=== PATIENT | female | born 1995 | race Two or more races ===

== ENCOUNTER 2023-09-25 21:06 | Emergency (ER) | payer MEDICAID, OTHER ==
[~2023-09-25] VITALS: Ht 154.9 cm; Wt 101.3 kg
[2023-09-25 21:26] VITALS: BP 154/86; RESP 16; TEMP 98.8; O2SAT 97
[2023-09-25 21:28] VITALS: PULSE 77
[2023-09-25] MEDS: BENZOCAINE (DENTAL) 20 % SPRAY 60ML MT ONE (23:00)
[2023-09-25] MEDS ORDERED: IBUP-1455 PO (23:05)
== END 2023-09-25 23:26 | disposition home or self-care (01) ==
LOC: ER 21:06
DX: S02.5XXA Fracture of tooth (traumatic), initial encounter for closed fracture (principal); Z79.899 Other long term (current) drug therapy; X58.XXXA Exposure to other specified factors, initial encounter; Y93.89 Activity, other specified; Y92.89 Other specified places as the place of occurrence of the external cause; Y99.8 Other external cause status
CPT/HCPCS: 93005

== ENCOUNTER 2024-06-30 22:04 | Emergency (ER) | payer MEDICAID ==
[~2024-06-30] VITALS: Ht 152.4 cm; Wt 99.5 kg
[~2024-06-30 22:04] MED LIST: IBUP-1455 PO
[2024-06-30 22:28] VITALS: BP 137/96; PULSE 100; RESP 17; TEMP 98.8; O2SAT 95
[2024-06-30] MEDS: FLUORESCEIN SOD OPTH TEST STRIP EACHEYE ONE (22:35)
[2024-06-30] MEDS: TETRACAINE HCL 0.5% OPTH(EYE) SOLN 4ML EACHEYE ONE (22:35)
[2024-06-30] MEDS ORDERED: OLOP0.1S7 EACHEYE (23:02)
--- NOTE | 2024-06-30 23:02 | ED.PDOC ---
Eye-HPI HPI Comments 29-YEAR-OLD FEMALE PRESENTS TO ER WITH BILATERAL EYE COMPLAINT X1 DAY. PATIENT REPORTS THAT SHE HAS BEEN EXPERIENCING ITCHING/INTERMITTENT BURNING AND REDNESS TO BILATERAL EYES THAT STARTED AT 7:00 P.M. PRIOR TO ARRIVAL TO ER WHILE RESTING AT HOME. DENIES USE OF MEDICATIONS FOR CURRENT SYMPTOMS AND DENIES ANY CURRENT PAIN. PATIENT PRESENTS TO ER AMBULATORY ON ARRIVAL, WITH STEADY GAIT, IN NO DISTRESS. DENIES EYE DRAINAGE, INJURY, SKIN CHANGES, USE OF CONTACTS, VISION CHANGES OR ANY FURTHER SYMPTOMS/COMPLAINTS Chief Complaint: Eye Problem Time Seen by MD: 22:08 Primary Care Provider: UNKNOWN Reviewed Notes: Nurses Notes, Medications, Allergies Allergies: Coded Allergies: NO KNOWN ALLERGIES (Unverified , 06/30/24) Home Meds Active Scripts Olopatadine HCl (Pataday) 0.1 % Tonya, 1 DROP EACHEYE DAILY PRN, #1 BOTTLE 0 Refills Prov:MARICHUY CEE 06/30/24 Ibuprofen Micronized (Ibuprofen) 800 Mg Tab, 800 MG PO Q8HPRN PRN, #20 TAB Prov:KAMALA ESTEBAN PAC 09/25/23 Information Source: Patient Mode of Arrival: Ambulatory Past Medical History PAST MEDICAL HISTORY: Denies Surgical History: Denies all surgeries SENIOR PROGRAM ANALYST History: No Pertinent SENIOR PROGRAM ANALYST History Family History Family History: Unknown Social History Smoker: Non-Smoker Alcohol: Denies ETOH Use Drugs: Denies Drug Use Lives In: Home Constitutional: denies: chills, diaphoresis, fatigue, fever, malaise, sweats, weakness, others EENTM: reports: others ( STATED IN HPI) Respiratory: denies: cough, hemoptysis, orthopnea, SOB at rest, shortness of breath, SOB with excertion, stridor, wheezing, others Cardiovascular: denies: chest pain, dizzy spells, diaphoresis, Dyspnea on exertion, edema, irregular heart beat, left arm pain, lightheadedness, palpitations, PND, syncope, others Gastrointestinal: denies: abdomen distended, abdominal pain, blood streaked bowels, constipated, diarrhea, dysphagia, difficulty swallowing, hematemesis, melena, nausea, poor appetite, poor fluid intake, rectal bleeding, rectal pain, vomiting, others Genitourinary: denies: abnormal vagina bleeding, burning, dyspareunia, dysuria, flank pain, frequency, hematuria, incontinence, pain, , vagina discharge, urgency, others Neurological: denies: dizziness, fainting, headache, left sided numbness, left sided weakness, numbness, paresthesia, pre-existing deficit, right sided numbness, right sided weakness, seizure, speech problems, tingling, tremors, weakness, others Musculoskeletal: denies: back pain, gout, joint pain, joint swelling, muscle pain, muscle stiffness, neck pain, others Integumetry: denies: bruises, change in color, change in hair/nails, dryness, laceration, lesions, lumps, rash, wounds, others Allergic/Immunocompromised: denies: Difficulty Healing, Frequent Infections, Hives, Itching, others Hematologic/Lymphatic: denies: anemia, blood clots, easy bleeding, easy bruising, swollen glands, others Endocrine: denies: excessive hunger, excessive sweating, excessive thirst, excessive urination, flushing, intolerance to cold, intolerance to heat, unexplained weight gain, unexplained weight loss, others Psychiatric: denies: anxiety, bipolar disorder, depression, hopeless, panic disorder, schizophrenia, sleepless, suicidal, others Physical Exam General Appearance: No Apparent Distress, Obese HEENT: PERRL/EOMI, Pharynx Normal, TMs Normal, Other (WOOD'S LAMP EXAMINATION BILATERAL EYES-MILD CONJUNCTIVAL INJECTION AND MODERATE CHEMOSIS NOTED BILATERALLY, NO DRAINAGE/CORNEAL ABRASION/FB NOTED, REMAINDER WOOD'S LAMP EXAMINATION-UNREMARKABLE) Neck: Full Range of Motion, Non-Tender, Normal Respiratory: Chest Non-Tender, Lungs Clear, No Accessory Muscle Use, No Respiratory Distress, Normal Breath Sounds Cardiovascular: No Murmur, No Gallop, Regular Rate/Rhythm Breast Exam: Deferred Gastrointestinal: NOT DONE Genitalia: Deferred Pelvic: Deferred Rectal: Deferred Extremities: Normal capillary refill, Normal range of motion Neurologic: Alert, 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 Was a procedure done?: No Sedation Sedation?: No EENT DIFF Eye: Corneal Abrasion, Corneal Ulceration, Foreign Body-Corneal, Orbital Cellulits, Periorbital Cellulits X-Ray, Labs, Meds, VS Vital Signs Date Time Temp Pulse Resp B/P (MAP) Pulse Ox O2 Delivery O2 Flow Rate FiO2 06/30/24 22:28 100 17 95 Room Air 06/30/24 22:28 98.8 100 17 137/96 (110) 95 98.8 06/30/24 22:16 98.8 100 17 137/96 (110) 95 98.8 TETRACAINE OPHTHALMIC ORDERED FLUORESCEIN STAIN OPHTHALMIC ORDERED ADVISED TO FOLLOW UP WITH PCP AND OPHTHALMOLOGY IN 1-2 DAYS PATIENT VERBALIZED UNDERSTANDING AND AGREEABLE WITH CURRENT PLAN OF CARE ADVISED TO RETURN TO ER IMMEDIATELY IF SYMPTOMS WORSEN Time of 1ST Reevaluation: 22:24 Reevaluation 1ST: N/A Patient Education/Counseling: Diagnosis, Treatment, Prognosis, Need For Follow Up Family Education/Counseling: No Family Present Departure 1 Departure Time of Disposition: 22:52 Impression: Primary Impression: Allergic conjunctivitis, bilateral Disposition: 01 HOME / SELF CARE / HOMELESS Condition: Stable e-Prescriptions Olopatadine HCl (Pataday) 0.1 % Tonya 1 DROP EACHEYE DAILY PRN, #1 BOTTLE 0 Refills Prov: MARICHUY CEE 06/30/24 Discharged With: Self Critical Care Note Critical Care Time?: No Stability Stability form required: No Heart Score Heart Score: Heart Score Response (Comments) Value History N/A 0 EKG N/A 0 Age N/A 0 Risk Factors N/A 0 Troponin N/A 0 Total 0 MARICHUY CEE Jun 30, 2024 23:02
== END 2024-06-30 23:13 | disposition home or self-care (01) ==
LOC: ER 22:04
DX: H10.13 Acute atopic conjunctivitis, bilateral (principal); Z79.899 Other long term (current) drug therapy